=== PATIENT | male | born 1940 | race Caucasian/White ===

== ENCOUNTER 2016-08-22 09:36 | Emergency (ER) | payer MEDICARE, OTHER ==
[~2016-08-22] VITALS: Ht 185.4 cm; Wt 80.0 kg
[~2016-08-22 09:36] MED LIST: ALEVE220 M2 PO; AMLODIPINE10 MG PO; AMLODIPINE2.5 MG PO; AMLODIPINE5 MG PO; B12 IM; B12 LIQUID IM; BAYER ASPIRIN325 M1 PO; CHOLESTYRAMINE4 G1 PO; CIPROFLOXACN500 MG PO; CYANOCOBALAM1000 MCG IJ; CYANOCOBALAM1000 MCG IM; CYANOCOBALAM1000 MCG IN; CYANOCOBALAM1000 MCG SC; FLUARIX QUADRIV1 INJ IM; FLUZONE SPLT1 M1 IM; IRON 65 MG; LISINOPRIL10 MG PO; METAMUCIL1.7 G1 OR; METRONIDAZOLE500 MG PO; MULTI COMPLETE PO; OMEPRAZOLE20 MG PO; PROCTOSOL HC2.5 % EX; ZESTRIL/PRI10 MG/TAB PO; ZESTRIL/PRI20 MG/TAB PO; [UNRECOGNIZED DRUG - CODE] EX
[2016-08-22 10:13] LABS: HEMATOCRIT 27.2 % (39.0-50.0); HEMOGLOBIN 8.9 g/dl (14.0-18.0); IMMATURE GRANULOCYTES 0.4 % (0.0-1.0); MEAN CELL VOLUME 94.4 fL CALC (80.0-100.0); MEAN CORPUSCULAR HGB 30.9 pG CALC (26.0-32.0); MEAN CORPUSCULAR HGB CONC 32.7 g/L CALC (32.0-36.0); NEUT# 5.09 thou/uL (1.82-7.42); RED BLOOD COUNT 2.88 mill/uL (4.70-6.10); RED CELL DISTRI WIDTH 15.4 % (11.5-15.5)
[2016-08-22 10:25] LABS: INTERNATIONAL NORMALIZED RATIO 3.3 RATIO (0.7-1.3); PROTHROMBIN TIME 39.7 SECONDS (9.0-12.5)
[2016-08-22 10:28] LABS: ALBUMIN 2.3 g/dL (3.2-5.0); ALKALINE PHOSPHATASE 27 u/l (38-126); BILIRUBIN, TOTAL 0.2 mg/dL (0.0-1.4); BUN 33 mg/dL (8-23); BUN/CREATININE RATIO 12 (12-20 (CALC)); CHLORIDE 124 mmol/l (95-108); CREATININE 2.8 mg/dL (0.7-1.3); GFR 22 ML/MIN (>=60 (CALC)); GFR FOR AFR.AMER. 27 ML/MIN (>=60 (CALC)); GLUCOSE 68 mg/dL (82-115); POTASSIUM 2.7 mmol/l (3.5-5.1); SGOT/AST 17 u/l (19-48); SGPT/ALT 26 u/l (11-66); SODIUM 144 mmol/l (137-146); TOTAL PROTEIN 4.2 g/dL (6.3-8.2)
[2016-08-22] MEDS ORDERED: B12 LIQUID PO (10:37)
[2016-08-22] MEDS ORDERED: METAMUCIL1.7 G1 PO (10:37)
[2016-08-22] MEDS ORDERED: HYDROCO/APAP1 TA9 PO (10:39)
[2016-08-22 10:47] LABS: ANION GAP 15 (6-22 (CALC)); CARBON DIOXIDE 8 mmol/l (22-30)
[2016-08-22 10:48] LABS: MYOGLOBIN 245 ng/mL (0 - 121)
[2016-08-22 12:14] VITALS: BP 126/56
[2016-08-22 12:15] VITALS: BP 126/56
[2016-08-22 12:23] VITALS: BP 127/57
[2016-08-22 12:45] VITALS: BP 131/58
== END 2016-08-22 12:44 | disposition short-term general hospital (02) ==
LOC: ED 09:36
PROVIDERS: Emergency Medicine
PROC: 30233N1 Transfusion of Nonautologous Red Blood Cells into Peripheral Vein, Percutaneous Approach (ICD-10-PCS; principal; 2016-08-22)
PROC: 30233N1 Transfusion of Nonautologous Red Blood Cells into Peripheral Vein, Percutaneous Approach (ICD-10-PCS; 2016-08-22)
DX: K92.2 Gastrointestinal hemorrhage, unspecified (principal); I95.1 Orthostatic hypotension; E87.6 Hypokalemia; D68.9 Coagulation defect, unspecified; I12.9 Hypertensive chronic kidney disease with stage 1 through stage 4 chronic kidney disease, or unspecified chronic kidney disease; N18.3 Chronic kidney disease, stage 3 (moderate); N17.9 Acute kidney failure, unspecified; Z98.0 Intestinal bypass and anastomosis status; R42 Dizziness and giddiness
CPT/HCPCS: P9016

== ENCOUNTER 2016-12-26 18:42 | Observation (INO) | payer MEDICARE, OTHER ==
[~2016-12-26] VITALS: Ht 185.4 cm; Wt 67.8 kg
[~2016-12-26 18:42] MED LIST changes: +CYANOCOBAL1000 MCG/M IM; +HYDROCO/APAP1 TA9 PO; +METAMUCIL1.7 G1 PO
--- NOTE | 2016-12-26 18:50 | NUR ---
PT.ARRIVED TO FLOOR VIA ACCOMPANIED BY DIGITAL IMAGER. PT.ORIENTED TO ROOM, CALL LIGHT, TV, BED AND V/S AND WEIGHT
[2016-12-26 19:00] VITALS: BP 116/69
[2016-12-26 20:59] LABS: CALCIUM 7.9 mg/dL (8.4-10.2); CREATININE 2.3 mg/dL (0.7-1.3); POTASSIUM 2.8 mmol/l (3.5-5.1)
[2016-12-26 21:43] LABS: HEMATOCRIT 31.9 % (39.0-50.0); HEMOGLOBIN 10.9 g/dl (14.0-18.0); IMMATURE GRANULOCYTES 0.5 % (0.0-1.0); MEAN CELL VOLUME 93.3 fL CALC (80.0-100.0); MEAN CORPUSCULAR HGB 31.9 pG CALC (26.0-32.0); MEAN CORPUSCULAR HGB CONC 34.2 g/L CALC (32.0-36.0); NEUT# 9.89 thou/uL (1.82-7.42); RED BLOOD COUNT 3.42 mill/uL (4.70-6.10); RED CELL DISTRI WIDTH 16.8 % (11.5-15.5)
--- NOTE | 2016-12-27 | NUR ---
PATIENT AWAKE AND LAYIG IN BED. NO APPARENT ACUTE DISTRESS NOTED.
[2016-12-27 03:20] VITALS: BP 102/64
--- NOTE | 2016-12-27 04:00 | NUR ---
NO APPARENT ACUTE CHANGES NOTED IN PATIENT'S CONDITION.
[2016-12-27 06:35] LABS: HEMATOCRIT 33.5 % (39.0-50.0); HEMOGLOBIN 11.2 g/dl (14.0-18.0); IMMATURE GRANULOCYTES 0.5 % (0.0-1.0); MEAN CELL VOLUME 94.6 fL CALC (80.0-100.0); MEAN CORPUSCULAR HGB 31.6 pG CALC (26.0-32.0); MEAN CORPUSCULAR HGB CONC 33.4 g/L CALC (32.0-36.0); NEUT# 6.34 thou/uL (1.82-7.42); RED BLOOD COUNT 3.54 mill/uL (4.70-6.10); RED CELL DISTRI WIDTH 16.9 % (11.5-15.5)
[2016-12-27 06:49] LABS: ALBUMIN 3.5 g/dL (3.2-5.0); BILIRUBIN, TOTAL 0.7 mg/dL (0.0-1.4); POTASSIUM 3.6 mmol/l (3.5-5.1)
[2016-12-27 07:44] VITALS: BP 105/72
--- NOTE | 2016-12-27 08:00 | NUR ---
DR. COSME IN TO SEE PT; PLAN OF CARE DISCUSSED
[2016-12-27 11:00] VITALS: BP 115/42
[2016-12-27 11:28] LABS: ALBUMIN 2.9 g/dL (3.2-5.0); BILIRUBIN, TOTAL 0.5 mg/dL (0.0-1.4); CREATININE 1.9 mg/dL (0.7-1.3); POTASSIUM 3.2 mmol/l (3.5-5.1); TOTAL PROTEIN 5.2 g/dL (6.3-8.2)
--- NOTE | 2016-12-27 11:37 | NUR ---
PT WATCHING TV; NO COMPLAINTS VOICED; IVF INFUSING WITHOUT DIFFICULTY; TELE MONITOR IN PLACE; WILL CONTINUE TO MONITOR.
--- NOTE | 2016-12-27 12:54 | NUR ---
MED COMPLETED ON PATIENT. PT STATES HE IS NOT TAKING HTN MEDICATIONS PER MD'S INSTRUCTION. HAS NOT TAKEN LISINOPRIL AND AMLODAPINE SINCE 11/13/16. PT REPORTS DAILY MULTIVITAMIN AND TYLENOL EXTRA STRENGTH PRN FOR HEADACHE. NKDA.
[2016-12-27] MEDS ORDERED: OMEPRAZOLE20 MG PO (13:07)
[2016-12-27] MEDS ORDERED: MULTI VIT PO (13:10)
--- NOTE | 2016-12-27 15:18 | NUR ---
PT READING BOOK; DENIES PAIN; CALL BARROW WITHIN REACH; WILL CONTINUE TO MONITOR.
[2016-12-27 15:34] VITALS: BP 119/72
[2016-12-27 16:13] LABS: ALBUMIN 2.9 g/dL (3.2-5.0); BILIRUBIN, TOTAL 0.6 mg/dL (0.0-1.4); CALCIUM 7.9 mg/dL (8.4-10.2); CREATININE 1.8 mg/dL (0.7-1.3); POTASSIUM 2.9 mmol/l (3.5-5.1); TOTAL PROTEIN 5.2 g/dL (6.3-8.2)
--- NOTE | 2016-12-27 16:23 | NUR ---
DR. COSME NOTIFIED OF LABS RESULTS;
--- NOTE | 2016-12-27 17:40 | NUR ---
DR. COSME IN TO SEE PT; PLAN OF CARE DISCUSSED
--- NOTE | 2016-12-27 19:00 | NUR ---
RECEIVED CHANGE OF SHIFT REPORT FROM DENNY MCCLELLAND. PATIENT RESTING IN BED AND DENIES PAIN OR DISCOMFORT. WILL CONTINUE TO MONITOR.
[2016-12-27 19:05] VITALS: BP 119/70
[2016-12-27 23:25] VITALS: BP 114/75
--- NOTE | 2016-12-28 | NUR ---
PATIENT RESTING QUIETLY IN BED AT THIS TIME. NO APPARENT ACUTE DISTRESS NOTED.
[2016-12-28 03:55] VITALS: BP 104/65
--- NOTE | 2016-12-28 04:00 | NUR ---
NO APPARENT ACUTE CHANGES NOTED IN PT'S CONDITION AT THIS TIME.
[2016-12-28 06:42] LABS: HEMATOCRIT 31.5 % (39.0-50.0); HEMOGLOBIN 10.9 g/dl (14.0-18.0); IMMATURE GRANULOCYTES 0.4 % (0.0-1.0); MEAN CELL VOLUME 92.1 fL CALC (80.0-100.0); MEAN CORPUSCULAR HGB 31.9 pG CALC (26.0-32.0); MEAN CORPUSCULAR HGB CONC 34.6 g/L CALC (32.0-36.0); NEUT# 5.22 thou/uL (1.82-7.42); RED BLOOD COUNT 3.42 mill/uL (4.70-6.10); RED CELL DISTRI WIDTH 16.9 % (11.5-15.5)
[2016-12-28 06:54] LABS: ALBUMIN 3.4 g/dL (3.2-5.0); BILIRUBIN, TOTAL 0.6 mg/dL (0.0-1.4); CALCIUM 7.7 mg/dL (8.4-10.2); CREATININE 1.8 mg/dL (0.7-1.3); POTASSIUM 3.1 mmol/l (3.5-5.1); TOTAL PROTEIN 5.9 g/dL (6.3-8.2)
--- NOTE | 2016-12-28 07:00 | NUR ---
RECEIVED BEDSIDE REPORT FROM SALVATORE BALDWIN. RESTING IN SEMI FOWLERS WITH EYES OPEN. RESPS EVEN AND UNLABORED ON ROOM AIR, TELE MONITOR IN PLACE. #22 LH INFUSING WITHOUT DIFFICULTY, SITE APPEARS HEALTHY. VOICES NO NEEDS AT THIS TIME. PLAN OF CARE DISCUSSED. SAFETY PRECAUTIONS REINFORCED. BED IN LOWEST POSITION WITH WHEELS LOCKED. CALL LIGHT WITHIN REACH. WILL CONTINUE TO MONITOR.
[2016-12-28 07:54] VITALS: BP 97/63
--- NOTE | 2016-12-28 09:50 | NUR ---
DR COSME IN WITH PT, NEW ORDERS RECEIVED.
--- NOTE | 2016-12-28 11:30 | NUR ---
SITTING IN BEDSIDE CHAIR. RESPS EVEN AND UNLABORED ON ROOM AIR, TELE MONITOR IN PLACE. #22 LH INFUSING WITHOUT DIFFICULTY, SITE APPEARS HEALTHY. DENIES PAIN OR DISCOMFORT. CALL LIGHT WITHIN REACH. WILL CONTINUE TO MONITOR.
[2016-12-28 12:00] VITALS: BP 100/69
[2016-12-28 12:45] LABS: CALCIUM 7.9 mg/dL (8.4-10.2); CREATININE 1.7 mg/dL (0.7-1.3); POTASSIUM 3.8 mmol/l (3.5-5.1)
--- NOTE | 2016-12-28 13:11 | NUR ---
PHONE CALL TO DR COSME, NEW ORDERS RECEIVED.
[2016-12-28] MEDS ORDERED: POT CHLORIDE10 ME1 PO (13:28)
--- NOTE | 2016-12-28 14:23 | NUR ---
Discharge instructions given. Patient verbalizes understanding of same. Discharged in stable condition via Wheelchair to Home with friend. All belongings sent with pt.
== END 2016-12-28 14:21 | disposition home or self-care (01) ==
LOC: MS2 18:42
PROVIDERS: ADMIT Internal Medicine Geriatric Medicine; ATTEND Internal Medicine Geriatric Medicine
DX: N99.89 Other postprocedural complications and disorders of genitourinary system (principal); N25.89 Other disorders resulting from impaired renal tubular function; I25.10 Atherosclerotic heart disease of native coronary artery without angina pectoris; I13.0 Hypertensive heart and chronic kidney disease with heart failure and stage 1 through stage 4 chronic kidney disease, or unspecified chronic kidney disease; I50.9 Heart failure, unspecified; N18.3 Chronic kidney disease, stage 3 (moderate); K21.9 Gastro-esophageal reflux disease without esophagitis; M19.90 Unspecified osteoarthritis, unspecified site; E87.6 Hypokalemia; E53.8 Deficiency of other specified B group vitamins; Y84.0 Cardiac catheterization as the cause of abnormal reaction of the patient, or of later complication, without mention of misadventure at the time of the procedure; Z90.49 Acquired absence of other specified parts of digestive tract

== ENCOUNTER 2017-07-25 07:09 | Day surgery (SDC) | payer MEDICARE, OTHER ==
[~2017-07-25] VITALS: Ht 185.4 cm; Wt 68.0 kg
[~2017-07-25 07:09] MED LIST changes: +CARVEDILOL3.125 MG PO; +CITRIC ACID XX; +MULTI VIT PO; +POT CHLORIDE10 ME1 PO; +[UNRECOGNIZED DRUG - OTHER] XX
[2017-07-25 09:59] VITALS: BP 130/65
== END 2017-07-25 11:35 | disposition home or self-care (01) ==
LOC: ENDO 07:09 → PO 16:45 → ENDO 16:45 → ORM 16:45
PROVIDERS: ATTEND Internal Medicine Gastroenterology
PROC: 0DBL8ZX Excision of Transverse Colon, Via Natural or Artificial Opening Endoscopic, Diagnostic (ICD-10-PCS; principal; 2017-07-25)
PROC: 0DBE8ZX Excision of Large Intestine, Via Natural or Artificial Opening Endoscopic, Diagnostic (ICD-10-PCS; 2017-07-25)
PROC: 0DB98ZX Excision of Duodenum, Via Natural or Artificial Opening Endoscopic, Diagnostic (ICD-10-PCS; 2017-07-25)
PROC: 0DB68ZX Excision of Stomach, Via Natural or Artificial Opening Endoscopic, Diagnostic (ICD-10-PCS; 2017-07-25)
DX: R19.7 Diarrhea, unspecified (principal); K91.2 Postsurgical malabsorption, not elsewhere classified; K21.9 Gastro-esophageal reflux disease without esophagitis; R63.4 Abnormal weight loss; K64.4 Residual hemorrhoidal skin tags; K57.30 Diverticulosis of large intestine without perforation or abscess without bleeding; K63.5 Polyp of colon; K31.7 Polyp of stomach and duodenum; K29.70 Gastritis, unspecified, without bleeding; Q40.8 Other specified congenital malformations of upper alimentary tract; I10 Essential (primary) hypertension; Z86.010 Personal history of colon polyps

== ENCOUNTER 2022-05-14 21:43 | Emergency (ER) | payer MEDICARE, OTHER ==
[~2022-05-14] VITALS: Ht 185.4 cm; Wt 58.0 kg
[2022-05-14] VITALS (10 sets, daily range): BP systolic 87–116; BP diastolic 41–66
[2022-05-14 22:54] LABS: BASO% 0.3 % (0-3); EOS% 0.5 % (0-8); IMMATURE GRANULOCYTES 0.2 % (0.0-5.0); LYMPH% 14.1 % (15-41); MEAN CORPUSCULAR HGB 31.2 pG CALC (26.0-32.0); MEAN CORPUSCULAR HGB CONC 30.1 g/dL CAL (32.0-36.0); MONO% 7.7 % (2-13); NEUT# 7.68 thou/uL (1.82-7.42); NEUT% 77.2 % (42-76); RED BLOOD COUNT 2.18 mill/uL (4.70-6.10); RED CELL DISTRI WIDTH 17.4 % (11.5-15.5)
[2022-05-14 22:55] LABS: CREATININE 2.5 mg/dL (0.7-1.3)
[2022-05-14 22:58] LABS: HEMATOCRIT 22.6 % (39.0-50.0); HEMOGLOBIN 6.8 g/dl (14.0-18.0); MEAN CELL VOLUME 103.7 fL CALC (80.0-100.0)
[2022-05-14 23:11] LABS: INTERNATIONAL NORMALIZED RATIO 2.3 RATIO (0.7-1.3); PROTHROMBIN TIME 21.8 SECONDS (9.0-12.5)
[2022-05-14 23:12] LABS: ALBUMIN 2.7 g/dL (3.2-5.0); TOTAL PROTEIN 4.7 g/dL (6.3-8.2)
[2022-05-14] MEDS ORDERED: ASPIRIN 81 LOW81 MG (23:29)
[2022-05-15 00:01] VITALS: BP 105/43
[2022-05-15 00:15] VITALS: BP 100/57
[2022-05-15 00:19] VITALS: BP 100/57
[2022-05-15 00:30] VITALS: BP 106/59
[2022-05-15 00:45] VITALS: BP 106/59
== END 2022-05-15 00:45 ==
LOC: ED 21:43
PROVIDERS: Emergency Medicine
PROC: 30233N1 Transfusion of Nonautologous Red Blood Cells into Peripheral Vein, Percutaneous Approach (ICD-10-PCS; principal; 2022-05-15)
DX: K92.1 Melena (principal); E53.8 Deficiency of other specified B group vitamins
CPT/HCPCS: P9016

== ENCOUNTER 2022-08-13 13:19 | Inpatient (IN) | payer MEDICARE, OTHER ==
[~2022-08-13] VITALS: Ht 185.4 cm; Wt 59.7 kg
[2022-08-13] VITALS (22 sets, daily range): BP systolic 99–146; BP diastolic 45–77
[~2022-08-13 13:19] MED LIST changes: +ASPIRIN 81 LOW81 MG
--- NOTE | 2022-08-13 13:19 | NUR ---
PATIENT ARRIVED TO ROOM 10 VIA EMS. PATIENT COVERED IN LOOSE STOOL. WELLNESS CHECK PROMPTED EMS TO FIND PATIENT IN THE FLOOR OF HIS HOME. EMS STATED IT APPEARED THAT IT HAD BEEN ALOT LONGER THAN JUST 3 DAYS. N/V/D X 3 DAYS. IV ACCESS ESTABLISHED BY ED NURSE. AT THE BEDSIDE.
--- NOTE | 2022-08-13 14:00 | NUR ---
PATIENT RESTING. ESCOBEDO CATH IN PLACE, IVF INFUSING.
[2022-08-13 14:14] LABS: BASO% 0.2 % (0-3); EOS% 0.1 % (0-8); IMMATURE GRANULOCYTES 0.8 % (0.0-5.0); LYMPH% 6.2 % (15-41); MEAN CORPUSCULAR HGB 30.1 pG CALC (26.0-32.0); MEAN CORPUSCULAR HGB CONC 31.9 g/dL CAL (32.0-36.0); MONO% 7.5 % (2-13); NEUT# 15.22 thou/uL (1.82-7.42); NEUT% 85.2 % (42-76); RED BLOOD COUNT 4.09 mill/uL (4.70-6.10); RED CELL DISTRI WIDTH 19.5 % (11.5-15.5)
[2022-08-13 14:15] LABS: URINE BILIRUBIN - DIPSTICK NEGATIVE (NEGATIVE); URINE BLOOD DIPSTICK LARGE (NEGATIVE); URINE COLOR YELLOW; URINE GLUCOSE - DIPSTICK NEGATIVE (NEGATIVE); URINE KETONE NEGATIVE (NEGATIVE); URINE LEUK ESTERASE NEGATIVE (NEGATIVE); URINE PROTEIN - DIPSTICK 100 mg/dL (NEG-TRACE); URINE UROBILINOGEN - DIPSTICK 0.2 E.U./dL (0.2)
[2022-08-13 14:27] LABS: BUN 59 mg/dL (8-23); SGOT/AST 28 u/l (19-48)
[2022-08-13 14:33] LABS: URINE NITRITE - DIPSTICK NEGATIVE (Negative)
[2022-08-13 14:38] LABS: URINE MUCUS MODERATE hpf (NONE-FEW)
[2022-08-13 14:38] LABS: HEMATOCRIT 38.5 % (39.0-50.0); HEMOGLOBIN 12.3 g/dl (14.0-18.0); MEAN CELL VOLUME 94.1 fL CALC (80.0-100.0)
[2022-08-13 15:16] LABS: ALBUMIN 4.1 g/dL (3.2-5.0); ALKALINE PHOSPHATASE 91 u/l (38-126); ANION GAP 20 (6-22 (CALC)); BILIRUBIN, TOTAL 0.5 mg/dL (0.2-1.3); BUN/CREATININE RATIO 12 (12-20 (CALC)); GFR FOR AFR.AMER. 13 ML/MIN (>=60 (CALC)); GFR OTHER RACES 11 ML/MIN (>=60 (CALC)); POTASSIUM 3.9 mmol/l (3.5-5.1); TOTAL PROTEIN 6.9 g/dL (6.3-8.2)
[2022-08-13 15:17] LABS: CREATININE 5.1 mg/dL (0.7-1.3)
[2022-08-13 15:18] LABS: CHLORIDE 144 mmol/l (95-108); SODIUM 165 mmol/l (137-146)
[2022-08-13 15:19] LABS: CARBON DIOXIDE < 5 mmol/l (22-30)
--- NOTE | 2022-08-13 15:20 | NUR ---
LAB CALLED CRITIAL RESULTS, SODIUM 165, CL-144, CREATINE 5.1, CARBON DIOXIDE LESS THAN 5
--- NOTE | 2022-08-13 16:03 | NUR ---
PATIENT RESTING. HYDRATION FLUIDS INFUSING. ADMISSION PENDING.
--- NOTE | 2022-08-13 17:30 | NUR ---
IV ABT'S INITIATED. ATIVAN 0.5MG GIVE TO HELP THE PATIENT RELAX.
--- NOTE | 2022-08-13 17:59 | NUR ---
LEIGH LUIS IN THE ICU [email or web address]. TECH SENT TO ICU TO GET MEDICATION.
--- NOTE | 2022-08-13 18:59 | NUR ---
PATIENT RESTING AND NO DISTRESS. MEDICATION RECINCILIATION UNABLE TO BE COMPLETED BECAUSE THE PATIENT IS UNABLE TO TELL US WHAT HE TAKES. I SPOKE WITH KATHY OLIVEIRA AND SHE HAS NO IDEA WHAT HE TAKES EITHER, . [facility]IV[facility] OUT OF STATE
--- NOTE | 2022-08-13 20:47 | NUR ---
REPORT CALLED TO CHARU CARRILLO. PATIENT TO BE TRANSFERRED VIA STRETCHER BY GEOVANI BALDWIN.
--- NOTE | 2022-08-13 21:15 | NUR ---
81 yr old white male admitted as medsurg overflow to icu5 per stretcher from er. transferred x3 to bed. bed weight obtained. pt is poorly responsive. o2 cont per nc. cardiac cath lab radiology technologist shows sinus tach pacs pvcs. zaidi cath in place draining pink urine. ivf began as ordered. bed alarm activated. fall precautions initated. unable to obtained history from pt. history obtined per old chart.
--- NOTE | 2022-08-13 23:00 | NUR ---
lab notified of need for blood draw.
--- NOTE | 2022-08-13 23:20 | NUR ---
lab here. blood drawn.
[2022-08-13 23:31] LABS: BASO% 0.1 % (0-3); EOS% 0.1 % (0-8); HEMATOCRIT 35.8 % (39.0-50.0); HEMOGLOBIN 11.1 g/dl (14.0-18.0); IMMATURE GRANULOCYTES 0.9 % (0.0-5.0); LYMPH% 5.3 % (15-41); MEAN CELL VOLUME 96.5 fL CALC (80.0-100.0); MEAN CORPUSCULAR HGB 29.9 pG CALC (26.0-32.0); MONO% 7.1 % (2-13); NEUT# 16.94 thou/uL (1.82-7.42); NEUT% 86.5 % (42-76); RED BLOOD COUNT 3.71 mill/uL (4.70-6.10); RED CELL DISTRI WIDTH 19.9 % (11.5-15.5)
[2022-08-13 23:45] LABS: BUN 57 mg/dL (8-23); BUN/CREATININE RATIO 13 (12-20 (CALC)); CREATININE 4.5 mg/dL (0.7-1.3); GFR FOR AFR.AMER. 15 ML/MIN (>=60 (CALC)); GFR OTHER RACES 13 ML/MIN (>=60 (CALC)); POTASSIUM 3.5 mmol/l (3.5-5.1)
[2022-08-13 23:56] LABS: ANION GAP 19 (6-22 (CALC)); CHLORIDE 144 mmol/l (95-108); SODIUM 164 mmol/l (137-146)
[2022-08-13 23:57] LABS: CARBON DIOXIDE < 5 mmol/l (22-30)
[2022-08-14] VITALS (402 sets, daily range): BP systolic 50–149; BP diastolic 24–93
--- NOTE | 2022-08-14 02:00 | NUR ---
awake. yells out @ times. no apparent distress. cardiac specialist shows sinus tach pacs pvcs. urine remains pink.
--- NOTE | 2022-08-14 03:00 | NUR ---
incont mod amt loose dk brown stool.
[2022-08-14 05:50] LABS: BASO% 0.1 % (0-3); EOS% 0.2 % (0-8); HEMATOCRIT 34.3 % (39.0-50.0); HEMOGLOBIN 10.6 g/dl (14.0-18.0); IMMATURE GRANULOCYTES 0.8 % (0.0-5.0); LYMPH% 5.7 % (15-41); MEAN CELL VOLUME 96.9 fL CALC (80.0-100.0); MEAN CORPUSCULAR HGB 29.9 pG CALC (26.0-32.0); MEAN CORPUSCULAR HGB CONC 30.9 g/dL CAL (32.0-36.0); MONO% 7.8 % (2-13); NEUT# 14.74 thou/uL (1.82-7.42); NEUT% 85.4 % (42-76); RED BLOOD COUNT 3.54 mill/uL (4.70-6.10); RED CELL DISTRI WIDTH 20.1 % (11.5-15.5)
--- NOTE | 2022-08-14 05:59 | NUR ---
remains confused. chokes easily on water. suctioned small amt yellow thick sputum from throat.
[2022-08-14 06:32] LABS: ALKALINE PHOSPHATASE 67 u/l (38-126); BILIRUBIN, TOTAL 0.4 mg/dL (0.2-1.3); BUN 60 mg/dL (8-23); BUN/CREATININE RATIO 13 (12-20 (CALC)); CREATININE 4.5 mg/dL (0.7-1.3); GFR FOR AFR.AMER. 15 ML/MIN (>=60 (CALC)); GFR OTHER RACES 13 ML/MIN (>=60 (CALC)); POTASSIUM 3.1 mmol/l (3.5-5.1); SGOT/AST 35 u/l (19-48); TOTAL PROTEIN 5.6 g/dL (6.3-8.2)
[2022-08-14 06:43] LABS: ALBUMIN 3.1 g/dL (3.2-5.0); ANION GAP 17 (6-22 (CALC)); CARBON DIOXIDE < 5 mmol/l (22-30); CHLORIDE 144 mmol/l (95-108); SODIUM 163 mmol/l (137-146)
--- NOTE | 2022-08-14 08:00 | NUR ---
REPORT RECIEVED FROM NIGHT RN. PT IS CURRENTLY LYING IN BED; PT IS AWAKE AND MOVING ALL EXTREMETIES; SPEECH IS NOT CLEAR, PT IS NOT ORIENTED. PT ADMITTED FOR AMS AND DEHYDRATION. PUPILS EQUAL AND REACTIVE. LUNG SOUNDS CLEAR WITH DIMINISHED LOWER BASES; PT ON NC AT 4L SATURATING >95%. HEART SOUNDS REGULAR; NSR WITH PVC'S AND PAC'S PRESENT. BOWEL SOUNDS HYPOACTIVE; NIGHT RN REPORTED BM THIS MORNING THAT WAS LIQUID/ LOOSE. PULSES STRONG ALL EXTREMETIES; SKIN WARM/ DRY. BUTTOCKS AREA REDDENED WITH MEPILEX PAD IN PLACE. ESCOBEDO CATHETER PRESENT. IV ACCESS 20G RAC WITH D5 1/2 NS RUNNING AT 125ML/H. VSS AT THIS TIME.
--- NOTE | 2022-08-14 08:30 | NUR ---
DR. GALVAN AT BEDSIDE TO ASSESS PATIENT. ABG'S AND HEAD CT ORDERED. PT'S VS STABLE BUT PT IS RESTLESS.
--- NOTE | 2022-08-14 10:15 | NUR ---
PT WAS BROUGHT TO CT BY HOSPITAL BED WITH O2. HEAD CT PERFORMED WITHOUT DIFFICULTY. ORDERS RECIEVED FROM DR. GALVAN TO HAVE PICC LINE PLACED. DOUBLE LUMEN PICC LINE PLACED BEFORE PT WAS BROUGHT BACK TO ICU. DUE TO DECLINING PT CONDITION AND ABG VALUES, ORDERS RECIEVED FROM DR. GALVAN TO HAVE PT INTUBATED.
--- NOTE | 2022-08-14 11:30 | NUR ---
PT SUCCESSFULLY INTUBATED AT 1121 BY ANESTHESIOLOGY. ET TUBE 7.5 AND 23 AT THE LIP; SECURED BY RT. CXR COMPLETED. PT STARTED ON PROPOFOL TO MAINTAIN SEDATION AND LEVOPHED TO MAINTAIN ADEQUATE BP.
[2022-08-14 11:34] LABS: BUN 57 mg/dL (8-23); BUN/CREATININE RATIO 13 (12-20 (CALC)); CREATININE 4.6 mg/dL (0.7-1.3); GFR FOR AFR.AMER. 15 ML/MIN (>=60 (CALC)); GFR OTHER RACES 12 ML/MIN (>=60 (CALC)); POTASSIUM 3.2 mmol/l (3.5-5.1)
[2022-08-14 11:36] LABS: ANION GAP 17 (6-22 (CALC))
[2022-08-14 11:37] LABS: SODIUM 165 mmol/l (137-146)
[2022-08-14 11:38] LABS: CARBON DIOXIDE < 5 mmol/l (22-30); CHLORIDE 146 mmol/l (95-108)
--- NOTE | 2022-08-14 12:00 | NUR ---
DR. KENDALL AT BEDSIDE TO ASSESS PATIENT. NO NEW ORDERS AT THIS TIME. ABG RESULTS COMMUNICATED TO DR. GALVAN. ORDERS RECIEVED TO ADMINISTER 2 AMPS SODIUM BICARB AND RE-CHECK ABG VALUES IN APPROXIMATELY 1 HR.
[2022-08-14 13:13] LABS: BUN 58 mg/dL (8-23); BUN/CREATININE RATIO 13 (12-20 (CALC)); CREATININE 4.6 mg/dL (0.7-1.3); GFR FOR AFR.AMER. 15 ML/MIN (>=60 (CALC)); GFR OTHER RACES 12 ML/MIN (>=60 (CALC)); POTASSIUM 3.2 mmol/l (3.5-5.1)
[2022-08-14 13:14] LABS: ANION GAP 19 (6-22 (CALC))
[2022-08-14 13:15] LABS: CARBON DIOXIDE < 5 mmol/l (22-30); CHLORIDE 144 mmol/l (95-108); SODIUM 165 mmol/l (137-146)
--- NOTE | 2022-08-14 14:00 | NUR ---
PY LYING IN BED. PROPOFOL TITRATED TO MAINTAIN ADEQUATE SEDATION. LEVOPHED TITRATED TO MAINTAIN ADEQUATE BP. RT AT BEDSIDE TO DRAW REPEAT ABG. VSS AT THIS TIME.
--- NOTE | 2022-08-14 15:15 | NUR ---
SPOKE WITH JUSTINE OVER TELEPHONE TO UPDATE ABOUT PT'S CONDITION. POA VERBALIZED THAT SHE WANTS THE PATIENT TO BE A DNR AND WOULD LIKE OMFORT MEASURES ONLY. PT STATED THAT SHE WOULD FAX OVER THE LIVING WILL PAPERWORK. LIVING WILL RECIEVED BY FAX. JUSTINE CALLED BACK TO CONFIRM WISHES FOR DNR AND EXTUBATION WITH COMFORT MEASURES ONLY. CONFIRMED WITH ANOTHER NURSE PRESENT. DR. GALVAN MADE AWARE OF POAna'S WISHES.
[2022-08-14 17:20] LABS: CREATININE 4.3 mg/dL (0.7-1.3); POTASSIUM 2.6 mmol/l (3.5-5.1)
--- NOTE | 2022-08-14 21:00 | NUR ---
PATIENT TERMINALLY EXTUBATED. PLACED ON O2 @ 2L NC. NO ACUTE DISTRESS NOTED AT THIS TIME.
[2022-08-15] VITALS (25 sets, daily range): BP systolic 67–118; BP diastolic 33–50
--- NOTE | 2022-08-15 06:00 | NUR ---
REPORT GIVEN TO ONCOMING NURSE
--- NOTE | 2022-08-15 08:00 | NUR ---
REPORT RECIEVED FROM NIGHT RN. PT IS COMFORT MEASURES ONLY AND DNR STATUS. PT IS NOT AROUSABLE BUT STILL REACTS TO NOXIOUS STIMULI. LUNG SOUNDS COARSE CRACKLES THROUGHOUT; PT SOUNDS VERY WET BUT DOES NOT HAVE EXCESSIVE ORAL SECRETIONS. SUCTIONING NOT INDICATED AT THIS TIME. PT ON 2 L NC. HEART RATE NSR WITH MULTIPLE PVC/PAC'S. BOWEL SOUNDS HYPOCTIVE. PULSES STRONG ALL EXTREMETIES. SKIN WARM/DRY. 0830: DR GALVAN AT BEDSIDE TO ASSESS PATIENT.
--- NOTE | 2022-08-15 09:04 | NUR ---
PHONE CALL PLACED TO DR. VERDIN TO MAKE AWARE OF PT'S CHANGE IN CODE STATUS AND ORDERS FOR COMFORT MEASURES ONLY.
--- NOTE | 2022-08-15 10:00 | NUR ---
PT LYING IN BED EYES CLOSED. ORAL CARE PROVIDED. PT MEDICATED.
--- NOTE | 2022-08-15 12:00 | NUR ---
PT LYING IN BED EYES CLOSED. MOUTH CARE AND ORAL SUCTIONING PERFORMED. PILLOWS USED TO MAKE PT MORE COMFORTABLE.
--- NOTE | 2022-08-15 13:45 | NUR ---
TRANSPORT TEAM ARRIVED TO TAKE PT TO HOSPICE HOUSE. ORAL CARE PROVIDED. REPORT GIVEN TO TRANSPORT TEAM. HOSPICE TEAM ALREADY GIVEN REPORT OVER THE PHONE. PT PLACED ON 3LNC AND SECURED FOR TRANSPORT. PT HAD NO PERSONAL BELONGINGS TO TAKE WITH HIM.
== END 2022-08-15 13:45 | disposition hospice, inpatient (51) | DRG 682 ==
LOC: ED 13:19 → ED-I 16:00 → ED 17:39 → ICU 17:40
PROVIDERS: Family Medicine; Internal Medicine; ADMIT Internal Medicine; ATTEND Internal Medicine
PROC: 0T9B70Z Drainage of Bladder with Drainage Device, Via Natural or Artificial Opening (ICD-10-PCS; 2022-08-13)
PROC: 02HV33Z Insertion of Infusion Device into Superior Vena Cava, Percutaneous Approach (ICD-10-PCS; principal; 2022-08-14)
PROC: B518ZZA Fluoroscopy of Superior Vena Cava, Guidance (ICD-10-PCS; 2022-08-14)
PROC: 3E043XZ Introduction of Vasopressor into Central Vein, Percutaneous Approach (ICD-10-PCS; 2022-08-14)
PROC: 0BH17EZ Insertion of Endotracheal Airway into Trachea, Via Natural or Artificial Opening (ICD-10-PCS; 2022-08-14)
PROC: 5A1935Z Respiratory Ventilation, Less than 24 Consecutive Hours (ICD-10-PCS; 2022-08-14)
DX: N17.0 Acute kidney failure with tubular necrosis (principal); J96.00 Acute respiratory failure, unspecified whether with hypoxia or hypercapnia; E87.0 Hyperosmolality and hypernatremia; K91.2 Postsurgical malabsorption, not elsewhere classified; R65.10 Systemic inflammatory response syndrome (SIRS) of non-infectious origin without acute organ dysfunction; E87.20 Acidosis, unspecified; N18.4 Chronic kidney disease, stage 4 (severe); N25.81 Secondary hyperparathyroidism of renal origin; E87.8 Other disorders of electrolyte and fluid balance, not elsewhere classified; E86.0 Dehydration; I95.9 Hypotension, unspecified; E86.9 Volume depletion, unspecified; E87.6 Hypokalemia; I12.9 Hypertensive chronic kidney disease with stage 1 through stage 4 chronic kidney disease, or unspecified chronic kidney disease; D63.1 Anemia in chronic kidney disease; I25.10 Atherosclerotic heart disease of native coronary artery without angina pectoris; K63.89 Other specified diseases of intestine; N28.1 Cyst of kidney, acquired; K21.9 Gastro-esophageal reflux disease without esophagitis; Z66 Do not resuscitate; Z86.010 Personal history of colon polyps; Z20.822 Contact with and (suspected) exposure to COVID-19
CPT/HCPCS: J2060; S0164